=== PATIENT | female | born 1955 | race Two or more races ===

== ENCOUNTER 2023-10-29 05:40 | Day surgery (SDC) | payer OTHER | END 2023-10-29 13:30 | disposition home or self-care (01) | LOC: AMB-ENDOS 05:40 | PROVIDERS: ATTEND Colon & Rectal Surgery | DX: D12.5 Benign neoplasm of sigmoid colon (principal); K63.5 Polyp of colon; K57.30 Diverticulosis of large intestine without perforation or abscess without bleeding; K64.0 First degree hemorrhoids; Z20.822 Contact with and (suspected) exposure to COVID-19; Z86.010 Personal history of colon polyps ==